=== PATIENT | male | born 1960 | race Caucasian/White ===

== ENCOUNTER 2020-07-03 10:24 | Day surgery (SDC) | payer MEDICARE, MEDICAID ==
[2020-06-26 15:12] LABS: BASOPHILS # (AUTO) 0.1 X10'3 (0-0.2); BASOPHILS % (AUTO) 0.8 % (0-1); EOSINOPHILS # (AUTO) 0.2 X10'3 (0-0.9); EOSINOPHILS % (AUTO) 2.1 % (0-6); LYMPHOCYTES # (AUTO) 2.9 X10'3 (1.1-4.8); LYMPHOCYTES % (AUTO) 38.7 % (21-51); MEAN CORPUSCULAR HEMOGLOBIN 30.4 PG (27.0-31.0); MEAN CORPUSCULAR HGB CONC 33.6 g/dL (33.0-36.5); MEAN CORPUSCULAR VOLUME 90.3 FL (78-98); MEAN PLATELET VOLUME 8.3 FL (7.4-10.4); MONOCYTES # (AUTO) 0.7 X10'3 (0-0.9); MONOCYTES % (AUTO) 8.6 % (2-12); NEUTROPHILS # (AUTO) 3.8 X10'3 (1.8-7.7); NEUTROPHILS % (AUTO) 49.8 % (42-75); PRE OP HEMATOCRIT 35.3 % (42.0-52.0); PRE OP HEMOGLOBIN 11.9 g/dL (14.0-17.9); PRE OP PLATELET COUNT 210 X10'3 (140-440); RED CELL DISTRIBUTION WIDTH 13.3 % (11.5-14.5)
[2020-06-26 15:25] LABS: ALBUMIN 3.7 G/DL (3.4-5.0); ALKALINE PHOSPHATASE 66 IU/L (46-116); BLOOD UREA NITROGEN 8 MG/DL (7-18); BUN/CREATININE RATIO 10.3 (5.4-32.0); CALCIUM 8.8 MG/DL (8.5-10.1); CHLORIDE 105 MMOL/L (99-107); CREATININE 0.78 MG/DL (0.60-1.10); PRE OP ALT 21 U/L (30-65); PRE OP ANION GAP 6 (8-16); PRE OP AST 20 U/L (10-37); PRE OP BILIRUB, TOTAL 0.3 MG/DL (0.0-1.0); PRE OP GLUCOSE 99 MG/DL (70-104); PRE OP POTASSIUM 4.1 MMOL/L (3.4-5.1); PRE OP SODIUM 140 MMOL/L (135-145); TOTAL CARBON DIOXIDE 29.3 MMOL/L (24-32); TOTAL PROTEIN 7.3 G/DL (6.4-8.2); eGFR > 90 ML/MIN
[~2020-07-03] VITALS: Ht 175.3 cm; Wt 72.0 kg
[2020-07-03] VITALS (10 sets, daily range): BP systolic 127–159; BP diastolic 71–92
[~2020-07-03 10:24] MED LIST: AMOX500C4 PO; BUPIVAcaine/PF 2.5 mg/ml (0.25%) 30ml vial ONE; IBUP-1986 PO; LIDOcaine 1% 30ml preserv. free vial ONE; METH-603 PO; OMEP-50 PO; ceFAZolin 2gm in dextrose, iso 50 ML IV ONE; famotidine 20mg tablet PO ONE; ringers solution, lacted 1,000 ML IV SCH
[2020-07-03] MEDS ORDERED: LIDOcaine 1% (10mg/ml) 2ml vial ONE (11:40)
[2020-07-03] MEDS ORDERED: midazolam 2 mg/2 ml injection ONE (13:00)
[2020-07-03] MEDS ORDERED: LIDOcaine 2% 5ml jelly ONE (13:15)
[2020-07-03] MEDS ORDERED: fentaNYL /PF 50mcg/ml 5ml ampule ONE (13:15)
[2020-07-03] MEDS ORDERED: glycopyrrolate 0.2mg/ml inj ONE (13:58)
[2020-07-03] MEDS ORDERED: neostigmine methylsulfate 1 MG/ML 10ml vial ONE (13:58)
[2020-07-03] MEDS ORDERED: labetalol 20mg/4ml (5mg/ml) syringe IV PRN (14:00)
[2020-07-03] MEDS ORDERED: ringers solution, lacted 1,000 ML IV SCH (14:00)
[2020-07-03] MEDS ORDERED: meperidine/PF 25mg/ml syringe IV PRN ×3 (14:00)
[2020-07-03] MEDS ORDERED: ondansetron/PF 4mg/2ml inj IV PRN (14:00)
[2020-07-03] MEDS ORDERED: morphine 2 MG/ML inj. syringe IV PRN (14:00)
[2020-07-03] MEDS ORDERED: hydrALAZINE 20mg/ml inj. IV PRN (14:00)
[2020-07-03] MEDS ORDERED: acetaminophen 1,000mg/100ml IV 100 ML IV PRN (14:00)
[2020-07-03] MEDS ORDERED: proCHLORperazine 10 MG/2 ml inj IV PRN (14:00)
[2020-07-03] MEDS ORDERED: HYDROcodone/acetaminophen 10/325mg tab PO PRN (14:15)
[2020-07-03] MEDS ORDERED: HYDROcodone/acetaminophen 5mg/325mg tablet PO PRN (14:15)
--- NOTE | 2020-07-03 14:28 | NUR ---
3 BANDAGES ON ABDOMEN, RIGHT FOREARM 20 GAUGE IV RUNNING IVF AT 75 ML/HR, PATIENT WANTED TO VOID IN URINAL WITH STAND UP ASSISTANCE, UNABLE TO VOID, POSITIONED BACK INTO BED, ADMINISTERED PAIN MEDICATIONS Received from OR via [facility], accompanied by Anesthesiologist SANDOR and report given by Anesthesiolgist. Addendum: 07/03/20 at 1442 by Paresh Curtis RN, RN Amended: Links added.
[2020-07-03] MEDS: morphine 4 MG/ML inj SYRINge IV PRN ×2 (14:49→14:57)
--- NOTE | 2020-07-03 16:15 | NUR ---
BLADDER SCAN REVEALS 400 CC OF URINE IN BLADDER AFTER SEVERAL ATTEMPTS TO VOID. PER PROTOCOL PLACED A ROBERTSON CATHETER. CLEAR URINE RETURN. LEG BAG DONNED AND ROBERTSON CARE PACKET INCLUDED IN DISCHARGE PAPERWORK. ALL DC QUESTIONS ANSWERED TO SATISFACTION. PATIENT WITH COMPLAINTS OF BURNING AT URETHRAL SITE. CLEANSED HEAD OF PENIS AND MEATUS OF ENTRANCE AROUND ROBERTSON CATHETER. PATIENT ABLE TO AMBULATE AND WAS TAKEN TO [facility] AND GIVEN A RIDE HOME FROM HIS SIG OTHER. ALL VSS. ABDOMINAL LAP SITES ALL CDI AND STATES A TOLERABLE LEVEL OF PAIN TO ABDOMEN. PRESCRIPTION PROVIDED WELL A NIGHT TIME BAG. REINFORCED INSTRUCTIONS TO CALL MD MONTERO OFFICE TO HAVE CATHETER TAKEN OUT TOMORROW, ALSO INSTRUCTED PATIENT NOT TO TAKE CATHETER OUT HIMSELF. PATIENT AGREES TO COMPLY. Addendum: 07/03/20 at 1743 by Paresh Curtis RN, RN Amended: Links added.
== END 2020-07-03 16:15 | disposition home or self-care (01) ==
LOC: PAS 10:24
PROVIDERS: ATTEND Surgery
DX: K40.90 Unilateral inguinal hernia, without obstruction or gangrene, not specified as recurrent (principal); Z98.890 Other specified postprocedural states; K21.9 Gastro-esophageal reflux disease without esophagitis; M19.90 Unspecified osteoarthritis, unspecified site; G89.29 Other chronic pain; Z79.899 Other long term (current) drug therapy; F17.210 Nicotine dependence, cigarettes, uncomplicated; Z20.822 Contact with and (suspected) exposure to COVID-19
CPT/HCPCS: 36415; 49650; 71046; 80053; 82948; 85025; 87635; 93005; C1781; J0131; J2001; J2175; J2250; J2270; J2710; J3010; J3490; A4215; A4618; J7120

== ENCOUNTER 2020-12-06 17:58 | Emergency (ER) | payer MEDICARE, MEDICAID ==
[~2020-12-06] VITALS: Ht 172.7 cm; Wt 65.9 kg
[~2020-12-06 17:58] MED LIST changes: -BUPIVAcaine/PF 2.5 mg/ml (0.25%) 30ml vial ONE; -LIDOcaine 1% 30ml preserv. free vial ONE; -ceFAZolin 2gm in dextrose, iso 50 ML IV ONE; -famotidine 20mg tablet PO ONE; -ringers solution, lacted 1,000 ML IV SCH
[2020-12-06 18:03] VITALS: BP 146/73
[2020-12-06] MEDS ORDERED: LIDO20SO16 PO (18:35)
[2020-12-06] MEDS ORDERED: PRED20TA PO (18:35)
[2020-12-06] MEDS ORDERED: PENI250T2 PO (18:35)
== END 2020-12-06 19:03 | disposition home or self-care (01) ==
LOC: ER 17:59
DX: K04.7 Periapical abscess without sinus (principal); G89.29 Other chronic pain; Z79.2 Long term (current) use of antibiotics; Z79.899 Other long term (current) drug therapy
CPT/HCPCS: 99283